=== PATIENT | female | born 1985 | race Caucasian/White ===

== ENCOUNTER 2017-03-07 12:47 | Emergency (ER) | payer SELFPAY ==
--- NOTE | 2017-03-07 14:56 | ER Document Report ---
HPI - HPI Patient complains to provider of: cough/congestion Onset: Last week Onset/Duration: Gradual Quality of pain: Achy Severity: Moderate Pain Level: 4 Context: Patient states she has had cough and congestion since last week. Now has a sore throat. Think she had a fever at home. Does have a history of strep and bronchitis. Associated Symptoms: Productive cough, Fever, Sinus pain/drainage Exacerbated by: Denies Relieved by: Denies Similar symptoms previously: Yes Recently seen / treated by doctor: No - ROS ROS below otherwise negative: Yes Systems Reviewed and Negative: Yes All other systems reviewed and negative - CONSTITUTIONAL Constitutional: REPORTS: Fever - EENT EENT: REPORTS: Sore Throat, Congestion - NEURO Neurology: DENIES: Headache - CARDIOVASCULAR Cardiovascular: DENIES: Chest pain - RESPIRATORY Respiratory: REPORTS: Coughing. DENIES: Trouble Breathing - GASTROINTESTINAL Gastrointestinal: DENIES: Abdominal Pain - REPRODUCTIVE LMP: 10 february Reproductive: DENIES: : - MUSCULOSKELETAL Musculoskeletal: DENIES: Extremity pain - DERM Skin Color: Normal Skin Problems: None Past Medical History - General Information source: Patient - Social History Smoking Status: Current Some Day Smoker Chew tobacco use (# tins/day): No Frequency of alcohol use: None Drug Abuse: None Lives with: Family Family History: Reviewed & Not Pertinent Patient has suicidal ideation: No Patient has homicidal ideation: No Renal/ Medical History: Reports: Other - PCO S Psychiatric Medical History: Reports: Hx Attention Deficit Hyperactivity Disorder Past Surgical History: Reports: Hx Gynecologic Surgery - tubes tied, Hx Herniorrhaphy, Hx Tubal Ligation - Immunizations Hx Diphtheria, Pertussis, Tetanus Vaccination: Yes Vertical Provider Document - CONSTITUTIONAL Agree With Documented VS: Yes Exam Limitations: No Limitations General Appearance: WD/WN, No Apparent Distress - INFECTION CONTROL TRAVEL OUTSIDE OF THE [place] IN LAST 30 DAYS: No - HEENT HEENT: Atraumatic, Normocephalic Notes: TMs dull, throat is mildly injected. - NECK Neck: Normal Inspection, Supple - RESPIRATORY Respiratory: Breath Sounds Normal, No Respiratory Distress O2 Sat by Pulse Oximetry: 98 Notes: Barky cough noted on exam with deep breathing - CARDIOVASCULAR Cardiovascular: Regular Rate, Regular Rhythm - GI/ABDOMEN Gastrointestinal: Abdomen Soft - MUSCULOSKELETAL/EXTREMETIES Musculoskeletal/Extremeties: MAEW - NEURO Level of Consciousness: Awake, Alert, Appropriate - DERM Integumentary: Warm, Dry Course - Vital Signs Vital signs: Temp Pulse Resp BP Pulse Ox 98.8 F 70 18 135/77 H 98 03/07/17 13:04 03/07/17 13:04 03/07/17 13:04 03/07/17 13:04 03/07/17 13:04 Discharge - Discharge Clinical Impression: Cough URI (upper respiratory infection) Qualifiers: URI type: unspecified URI Qualified Code(s): J06.9 - Acute upper respiratory infection, unspecified Condition: Good Disposition: HOME, SELF-CARE Instructions: Acetaminophen, Sore Throat ([facility]) Additional Instructions: meds as prescribed OTC cough/cold meds push fluids OTC flonase for nasal congestion follow up with your PCP or return if not better in 4-5 days Prescriptions: Amoxicillin Trihydrate [Amoxil 875 mg Tablet] 1 tab PO BID #20 tablet Prednisone [Deltasone 10 mg Tablet] 10 mg PO ASDIR PRN #21 tablet PRN Reason: Forms: Return to Work
[2017-03-07 15:22] VITALS: BP 147/68
== END 2017-03-07 15:09 | disposition home or self-care (01) ==
LOC: ER 12:47
DX: J06.9 Acute upper respiratory infection, unspecified (principal); J02.9 Acute pharyngitis, unspecified; F17.200 Nicotine dependence, unspecified, uncomplicated; Z98.51 Tubal ligation status
CPT/HCPCS: 87070; 87880; 99283

== ENCOUNTER 2017-09-25 14:44 | Emergency (ER) | payer OTHER, BC ==
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
[2017-09-25 18:29] VITALS: BP 135/88
== END 2017-09-25 18:28 | disposition home or self-care (01) ==
LOC: ER 14:44
DX: M54.5 Low back pain (principal); M62.830 Muscle spasm of back; R51 Headache; V43.52XA Car driver injured in collision with other type car in traffic accident, initial encounter; F17.200 Nicotine dependence, unspecified, uncomplicated
CPT/HCPCS: 70450; 72110; 99284

== ENCOUNTER 2019-02-24 18:37 | Emergency (ER) | payer BC ==
--- NOTE | 2019-02-24 18:56 | ER Document Report ---
ED Medical Screen (RME) - General Chief Complaint: Abdominal Pain Stated Complaint: ABDOMINAL/FANK PAIN,DIARRHEA Time Seen by Provider: 02/24/19 18:55 Primary Care Provider: LÓPEZ ALBERTS FNP [Primary Care Provider] - Follow up as needed Mode of Arrival: Ambulatory Information source: Patient Notes: 33-year-old female presented to ED for complaint of flank pain for couple weeks. She states it is worse on the left. She has a history of polycystic kidney disease. She called her parents in [place] that her pain was getting bad and achy throughout the stay with her. She is also having nausea vomiting and diarrhea sweating. Parents admitting labs were brought her to the emergency room today. She does smoke around a pack a day but not right now while she is hurting rarely drinks and sometimes smokes pot and lives with her children. I have greeted and performed a rapid initial assessment of this patient. A comprehensive ED assessment and evaluation of the patient, analysis of test results and completion of medical decision making process will be conducted by an additional ED providers. TRAVEL OUTSIDE OF THE [place] IN LAST 30 DAYS: No - Related Data Allergies/Adverse Reactions: No Known Allergies Allergy (Verified 02/24/19 18:44) Past Medical History Renal/ Medical History: Reports: Other - polycystic kidney disesse Malignancy Medical History: Reports: None GI Medical History: Reports: None Musculoskeltal Medical History: Reports None Skin Medical History: Reports None Psychiatric Medical History: Reports: Hx Anxiety, Hx Attention Deficit Hyperactivity Disorder, Hx Depression Traumatic Medical History: Reports: None Infectious Medical History: Reports: None Past Surgical History: Reports: Hx Tubal Ligation, Hx Umbilical Hernia, Other - ventral hernia repair - Immunizations Hx Diphtheria, Pertussis, Tetanus Vaccination: Yes Physical Exam - Vital signs Vitals: Temp Pulse Resp BP Pulse Ox 97.5 F 105 H 20 103/46 L 100 02/24/19 18:48 02/24/19 18:48 02/24/19 18:48 02/24/19 18:48 02/24/19 18:48 Course - Vital Signs Vital signs: Temp Pulse Resp BP Pulse Ox 97.5 F 105 H 20 103/46 L 100 02/24/19 18:48 02/24/19 18:48 02/24/19 18:48 02/24/19 18:48 02/24/19 18:48 Doctor's Discharge - Discharge Referrals: LÓPEZ ALBERTS FNP [Primary Care Provider] - Follow up as needed
[2019-02-24] MEDS ORDERED: MORPHINE SULFATE 10 MG/ML INJ IV ONE (19:04)
[2019-02-24] MEDS ORDERED: KETOROLAC TROMETHAMINE INJ/PF 30 MG/1 ML SDV IV ONE ×2 (19:04→20:58)
[2019-02-24] MEDS ORDERED: ONDANSETRON HCL INJ/PF 4 MG/2 ML SDV IV ONE (19:04)
[2019-02-24] MEDS ORDERED: NORMAL SALINE 1000 ML 1,000 ML IV ONE ×3 (20:09→23:18)
[2019-02-24] MEDS ORDERED: METHOCARBAMOL INJ/PF 1000 MG/10 ML SDV IV ONE (20:09)
[2019-02-24 20:14] LABS: ABSOLUTE LYMPHOCYTES (AUTO) 0.7 10^3/uL (0.5-4.7); ABSOLUTE MONOCYTES (AUTO) 0.8 10^3/uL (0.1-1.4); ABSOLUTE NEUT (AUTO) 11.4 10^3/uL (1.7-8.2); BASOPHILS % (AUTO) 0.2 % (0-2); EOSINOPHILS % (AUTO) 0.2 % (0-6); HEMATOCRIT 43.3 % (36.0-47.0); HEMOGLOBIN 14.3 g/dL (12.0-15.5); LYMPHOCYTES % (AUTO) 5.2 % (13-45); MEAN CORPUSCULAR HEMOGLOBIN 28.4 pg (27.0-33.4); MEAN CORPUSCULAR HGB CONC 33.1 g/dL (32.0-36.0); MEAN CORPUSCULAR VOLUME 86 fl (80-97); MONOCYTES % (AUTO) 6.1 % (3-13); PLATELET COUNT 135 10^3/uL (150-450); RED BLOOD COUNT 5.05 10^6/uL (3.72-5.28); RED CELL DISTRIBUTION WIDTH 16.3 % (11.5-14.0); SEGMENTED NEUTROPHILS % (AUTO) 88.3 % (42-78); TOTAL CELLS COUNTED % (AUTO) 100 %
[2019-02-24 20:30] LABS: ALBUMIN 3.5 g/dL (3.5-5.0); ALCOHOL < 10 mg/dL (NONE DETECTED); ALKALINE PHOSPHATASE 65 U/L (38-126); ANION GAP 11 (5-19); ASPARTATE AMINO TRANSFERASE 12 U/L (14-36); BILIRUBIN,DIRECT 0.3 mg/dL (0.0-0.4); BILIRUBIN,TOTAL 0.6 mg/dL (0.2-1.3); BLOOD UREA NITROGEN 14 mg/dL (7-20); CALCIUM 9.3 mg/dL (8.4-10.2); CARBON DIOXIDE 29 mmol/L (22-30); CHLORIDE 101 mmol/L (98-107); GLUCOSE 118 mg/dL (75-110); POTASSIUM 3.7 mmol/L (3.6-5.0); TOTAL PROTEIN 6.2 g/dL (6.3-8.2)
--- NOTE | 2019-02-24 20:56 | ER Document Report ---
Entered by DEENA CARSON SCRIBE 02/24/192006 Acting as scribe for:MICHELLE BALLESTEROS MD ED GI/ - General Chief Complaint: Abdominal Pain Stated Complaint: ABDOMINAL/FANK PAIN,DIARRHEA Time Seen by Provider: 02/24/19 18:55 Primary Care Provider: LÓPEZ ALBERTS FNP [NURSE PRACTITIONER] - Follow up as needed Mode of Arrival: Ambulatory Information source: Patient Notes: Patient is a 33-year-old female who presents to the emergency department today with complaints of diffuse generalized back pain and abdominal pain with associated nausea. Patient states that she has polycystic kidney disease and she is unsure if her pain is related to that. Patient states she has been constipated for quite some time but yesterday began having diarrhea. Patient states she took no medications for constipation that would have caused her diarrhea. Patient states she has tried ibuprofen, a TENS unit, and lidocaine patches for her back pain with no relief. Patient mentions when she "gets hot she develops nausea and then almost has a panic attack". Patient denies vomiting. TRAVEL OUTSIDE OF THE [place] IN LAST 30 DAYS: No - Related Data Allergies/Adverse Reactions: No Known Allergies Allergy (Verified 02/24/19 18:44) Past Medical History - General Information source: Patient - Social History Smoking Status: Current Every Day Smoker Cigarette use (# per day): Yes Frequency of alcohol use: Occasional Drug Abuse: Marijuana Occupation: [employer] Lives with: Family Family History: Reviewed & Not Pertinent Patient has suicidal ideation: No Patient has homicidal ideation: No Renal/ Medical History: Reports: Other - polycystic kidney disesse Psychiatric Medical History: Reports: Hx Anxiety, Hx Attention Deficit H yperactivity Disorder, Hx Depression Past Surgical History: Reports: Hx Herniorrhaphy - ventral, Hx Tubal Ligation, Hx Umbilical Hernia - Immunizations Hx Diphtheria, Pertussis, Tetanus Vaccination: Yes Review of Systems - Review of Systems Constitutional: No symptoms reported EENT: No symptoms reported Cardiovascular: No symptoms reported Respiratory: No symptoms reported Gastrointestinal: See HPI, Abdominal pain, Diarrhea, Nausea, Constipation. denies: Vomiting Genitourinary: See HPI, Flank pain Female Genitourinary: No symptoms reported Musculoskeletal: See HPI, Back pain Skin: No symptoms reported Hematologic/Lymphatic: No symptoms reported Neurological/Psychological: See HPI, Anxiety -: Yes All other systems reviewed and negative Physical Exam - Vital signs Vitals: Temp Pulse Resp BP Pulse Ox 97.5 F 105 H 20 103/46 L 100 02/24/19 18:48 02/24/19 18:48 02/24/19 18:48 02/24/19 18:48 02/24/19 18:48 - Notes Notes: Physical Exam: General: Alert. Intermittently tearful. HEENT: Normocephalic. Atraumatic. PERRL. Extraocular movements intact. Erum pharynx clear. Neck: Supple. Non-tender. Respiratory: No respiratory distress. Clear and equal breath sounds bilaterally. Cardiovascular: Regular rate and rhythm. Abdominal: Hyperactive bowel sounds. Diffuse abdominal tenderness with palpation. Patient screams in pain with only light palpation of the abdomen. No distension. Back: No gross abnormalities. Mid to lower thoracic and lumbar paraspinal musculature tenderness with palpation. Extremities: Moves all four extremities. Upper extremities: Normal inspection. Normal ROM. Lower extremities: Normal inspection. No edema. Normal ROM. Neurological: Normal cognition. AAOx4. Normal speech. Psychological: Normal affect. Normal Mood. Skin: Warm. Dry. Normal color. Course - Vital Signs Vital signs: Temp Pulse Resp BP Pulse Ox 97.5 F 105 H 20 103/46 L 100 02/24/19 18:48 02/24/19 18:48 02/24/19 18:48 02/24/19 18:48 02/24/19 18:48 - Laboratory Result Diagrams: 02/24/19 19:55 02/24/19 19:55 Laboratory results interpreted by me: 02/24/19 02/24/19 02/24/19 19:55 19:55 22:25 WBC 13.0 H RDW 16.3 H Plt Count 135 L Lymph % (Auto) 5.2 L Absolute Neuts (auto) 11.4 H Seg Neutrophils % 88.3 H Glucose 118 H AST 12 L Total Protein 6.2 L Lipase 19.6 L Urine Protein 100 H Urine Bilirubin SMALL H Ur Leukocyte Esterase LARGE H Discharge - Discharge Clinical Impression: Polycystic kidney disease, Marijuana abuse Low back pain Qualifiers: Chronicity: acute Back pain laterality: bilateral Sciatica presence: without sciatica Qualified Code(s): M54.5 - Low back pain Urinary tract infection Qualifiers: Urinary tract infection type: site unspecified Hematuria presence: with hematuria Qualified Code(s): N39.0 - Urinary tract infection, site not specified; R31.9 - Hematuria, unspecified Condition: Stable Disposition: HOME, SELF-CARE Additional Instructions: Low Back Pain: Three out of every four people will have an episode of disabling back pain during their lifetime. Most commonly the pain is due to straining of the muscles and ligaments in the low back. Usual treatment includes: (1) Rest on a firm surface. Avoid lying on your stomach. (2) Ice pack the painful area. After a few days, gentle heat may be used intermittently to relax the area, or ice packs can be continued. (3) Medication may be needed -- muscle relaxers and antiinflammatory medicines are commonly used. (4) As the back improves, exercises are prescribed to strengthen the back and abdominal muscles. Your doctor will advise you on the proper care for your back at each stage in your recovery. You may be better in a few days -- or healing may take several weeks. If new symptoms of a "herniated disc" (radiation of pain, numbness, or tingling down the back of the leg or weakness in the leg) occur, you should be re-examined. Further testing may be necessary. Urinary Tract Infection: Your evaluation indicates that you have a urinary tract infection. This is due to germs growing in the bladder. This is a common problem. This infection usually responds quickly to antibiotics. Your antibiotic should be taken exactly as prescribed. Drink plenty of fluids -- three to four quarts a day. Occasionally, a bladder anesthetic will be prescribed to help stop the feeling of urgency until the antibiotic has a chance to clear the infection. This may cause your urine to be dark orange. Certain urine infections require a culture. If the doctor obtained a culture, the results will be back in two days. You should call to see if a change in treatment is needed. A repeat urinalysis after you finish treatment is often recommended. The physician will let you know if further testing is required. Call the doctor if you develop fever, chills, flank pain, inability to urinate, or blood in the urine. Start the medications as prescribed in the morning. Drink plenty of fluids and get plenty of rest. Take the pain medication as dispensed tonight if needed. Follow-up with a local primary care provider if not improving. RETURN TO THE EMERGENCY ROOM IF ANY NEW OR WORSENING SYMPTOMS. Prescriptions: Cephalexin Monohydrate [Keflex 500 mg Capsule] 500 mg PO QID #28 capsule Naproxen [Naprosyn 250 mg Tablet] 500 mg PO BID PRN #14 tablet PRN Reason: For Back Pain Methocarbamol [Robaxin 750 mg Tablet] 750 mg PO ASDIR PRN #40 tablet PRN Reason: Referrals: LÓPEZ ALBERTS FNP [NURSE PRACTITIONER] - Follow up as needed Scribe Attestation: 02/24/19 21:00 I personally performed the services described in the documentation, reviewed and edited the documentation which was dictated to the scribe in my presence, and it accurately records my words and actions. I personally performed the services described in the documentation, reviewed and edited the documentation which was dictated to the scribe in my presence, and it accurately records my words and actions.
--- NOTE | 2019-02-24 21:21 | RADIOLOGY REPORT (SQ) ---
Ultrasound retroperitoneum on 02/24/2019 CLINICAL INDICATION: Left greater than right back pain, history of polycystic kidneys COMPARISON: CT from 02/28/2014 FINDINGS: Multiple sonographic images are obtained throughout the kidneys and bladder, both transverse and sagittal images are obtained. Visualized aorta is unremarkable. Right kidney measures approximately 14.1 cm in greatest [id number] length. Left kidney measures approximately 15.3 cm in greatest [id number] length. There are innumerable cysts throughout both kidneys consistent with changes of polycystic kidney disease. There is increased echogenicity of the kidneys consistent with medical renal disease. There is no hydronephrosis. The bladder is not visualized. IMPRESSION: Likely stable findings of left greater than right polycystic kidney disease in comparison with the prior CT.
[2019-02-24 23:09] LABS: APPEARANCE,URINE CLOUDY; BILIRUBIN,URINE SMALL (NEGATIVE); COLOR,URINE AMBER; GLUCOSE, URINE NEGATIVE (NEGATIVE); KETONES,URINE NEGATIVE (NEGATIVE); LEUKOCYTE ESTERASE,URINE LARGE (NEGATIVE); NITRITE,URINE NEGATIVE (NEGATIVE); PROTEIN,URINE 100 mg/dL (NEGATIVE); UROBILINOGEN,URINE NEGATIVE mg/dL (<2.0)
[2019-02-24] MEDS ORDERED: CEFTRIAXONE 1 GM/D5W RTU 1 GM/50 ML RTUPB IV ONE (23:18)
[2019-02-24 23:22] LABS: URINE BARBITURATES SCREEN NEGATIVE; URINE BENZODIAZEPINES SCREEN NEGATIVE; URINE COCAINE SCREEN NEGATIVE; URINE MARIJUANA (THC) SCREEN UNCONFIRMED POSITIVE; URINE METHADONE SCREEN NEGATIVE; URINE PHENCYCLIDINE SCREEN NEGATIVE
[2019-02-25] MEDS ORDERED: HYDROCODONE/ACETAMINOPHEN 5-325 MG (6 TAB/ER DISP) PO PRN (00:31)
[2019-02-25] MEDS ORDERED: ONDANSETRON ODT 4 MG TAB (6 TAB/ER DISP) PO PRN (00:35)
[2019-02-25 01:22] VITALS: BP 132/86
== END 2019-02-25 01:25 | disposition home or self-care (01) ==
LOC: ER 18:37
DX: Q61.3 Polycystic kidney, unspecified (principal); F12.10 Cannabis abuse, uncomplicated; M54.5 Low back pain; N39.0 Urinary tract infection, site not specified; R31.9 Hematuria, unspecified; R10.9 Unspecified abdominal pain; R19.7 Diarrhea, unspecified; M54.9 Dorsalgia, unspecified; R11.0 Nausea; F17.210 Nicotine dependence, cigarettes, uncomplicated
CPT/HCPCS: 36415; 87086; 80307 ×2; 83690; 84703; 85025; 87088; 80053; 81001; 87186; 76770; J2800; J1885; J2405; J7030; J0696